=== PATIENT | female | born 1950 | race Caucasian/White ===

== ENCOUNTER → 2016-05-24 | Outpatient (CLI) | payer BC, MEDICARE ==
[~2016-05-24] MED LIST: AMLO5TAB2 PO; CLON0.1T14 PO
== END ==
LOC: CARD 11:17
PROVIDERS: ATTEND Internal Medicine Cardiovascular Disease
DX: E78.4 Other hyperlipidemia (principal); I10 Essential (primary) hypertension; R00.2 Palpitations; G47.30 Sleep apnea, unspecified
CPT/HCPCS: 93225; 93226

== ENCOUNTER → 2016-11-26 | Outpatient (CLI) | payer BC, MEDICARE | LOC: CARD 09:58 | DX: I10 Essential (primary) hypertension (principal); R53.83 Other fatigue; Z87.19 Personal history of other diseases of the digestive system | CPT/HCPCS: 93306 ==

== ENCOUNTER → 2017-02-23 | Outpatient (CLI) | payer BC, MEDICARE ==
--- NOTE | 2017-02-23 20:09 | Diagnostic Imaging Report ---
INDICATION: Fever and cough. PA and lateral chest obtained at 8:16 p.m. FINDINGS: Heart is normal in size. Mediastinal silhouette is unremarkable. Lungs are clear. There is no pneumothorax or pleural fluid. IMPRESSION: Negative chest. Dictated by: Dictated on workstation # [id number]
== END ==
LOC: RAD 19:43
PROVIDERS: ATTEND Nurse Practitioner Family
DX: R05 Cough (principal); R50.9 Fever, unspecified
CPT/HCPCS: 71046

== ENCOUNTER 2017-05-17 10:21 | Emergency (ER) | payer BC, MEDICARE ==
[~2017-05-17] VITALS: Ht 154.9 cm; Wt 56.7 kg
[~2017-05-17 10:21] MED LIST changes: -LEVO50TA PO; -VIT D PO
[2017-05-17] MEDS ORDERED: VIT D PO (10:47)
[2017-05-17] MEDS ORDERED: LEVO50TA PO (10:47)
[2017-05-17] MEDS ORDERED: NS IV 1000 ML 1,000 ML IV ONE (11:14)
[2017-05-17 11:30] LABS: BILIRUBIN,URINE NEGATIVE (NEGATIVE); CLARITY,URINE CLEAR; COLOR,URINE YELLOW; GLUCOSE, URINE (UA) NEGATIVE (NEGATIVE); KETONES,URINE NEGATIVE (NEGATIVE); LEUKOCYTE ESTERASE ,URINE NEGATIVE (NEGATIVE); NITRITE,URINE NEGATIVE (NEGATIVE); PH,URINE 6.5 (5-9); PROTEIN,URINE NEGATIVE (NEGATIVE); UROBILINOGEN,URINE NORMAL (NORMAL)
[2017-05-17 11:44] LABS: BACTERIA,URINE NEGATIVE /HPF; SQUAMOUS EPITHELIAL CELL,UR 0-2 /HPF; WBC,URINE RARE /HPF
[2017-05-17 11:47] LABS: BASOPHILS % (AUTO) 0 % (0-10); EOSINOPHILS % (AUTO) 0 % (0-10); HEMATOCRIT 37 % (35-52); HEMOGLOBIN 12.4 G/DL (11.5-16.0); LYMPHOCYTES # (AUTO) 2.4 X 10^3 (1.0-4.0); LYMPHOCYTES % (AUTO) 14 % (12-44); MEAN CORPUSCULAR HEMOGLOBIN 28 PG (25-34); MEAN CORPUSCULAR HGB CONC 34 G/DL (32-36); MEAN CORPUSCULAR VOLUME 82 FL (80-99); MONOCYTES # (AUTO) 0.8 X 10^3 (0.0-1.0); MONOCYTES % (AUTO) 5 % (0-12); NEUTROPHILS # (AUTO) 14.3 X 10^3 (1.8-7.8); NEUTROPHILS % (AUTO) 82 % (42-75); PLATELET COUNT 287 10^3/uL (130-400); RED CELL DISTRIBUTION WIDTH 13.2 % (10.0-14.5); WHITE BLOOD COUNT 17.6 10^3/uL (4.3-11.0)
[2017-05-17 12:16] LABS: BAND NEUTROPHILS 2 %; BASOPHILS % (MANUAL) 0 %; EOSINOPHILS % (MANUAL) 1 %; LYMPHOCYTES % (MANUAL) 14 %; MONOCYTES % (MANUAL) 5 %; NEUTROPHILS % (MANUAL) 78 %
[2017-05-17 12:28] LABS: ALANINE AMINOTRANSFERASE 26 U/L (0-55); ALBUMIN 4.5 GM/DL (3.2-4.5); ALKALINE PHOSPHATASE 81 U/L (40-136); BILIRUBIN,TOTAL 0.5 MG/DL (0.1-1.0); BUN/CREATININE RATIO 15; CALCIUM 10.6 MG/DL (8.5-10.1); CARBON DIOXIDE 29 MMOL/L (21-32); CHLORIDE 102 MMOL/L (98-107); CREATININE SERUM 0.65 MG/DL (0.60-1.30); GFR ESTIMATED > 60; GLUCOSE 122 MG/DL (70-105); POTASSIUM 3.6 MMOL/L (3.6-5.0); SODIUM 136 MMOL/L (135-145); TOTAL PROTEIN 8.3 GM/DL (6.4-8.2)
[2017-05-17 12:49] LABS: FREE T4 (FREE THYROXINE) 1.53 NG/DL (0.70-1.48)
--- NOTE | 2017-05-17 12:49 | ED General ---
General Chief Complaint: Fever-Adult/Adol Stated Complaint: BP ISSUES Nursing Triage Note: PT TO ROOM 7 PT CO OF FEVER AND ELEVATED B/P AT TIME OF FEVER. PT STATES SX STARTED LAST PM HAS TAKEN TYLENOL FOR FEVER THIS AM OF 101 Nursing Sepsis Screen: Possible Sepsis Risk Source of Information: Patient, Family Exam Limitations: No Limitations History of Present Illness Date Seen by Provider: May 17, 2017 Time Seen by Provider: 10:35 Initial Comments This 66-year-old woman presents to the emergency room with multiple complaints. She developed an episode of hypertension, tachycardia, and shivering with subjective fever last night around 01:30. Her reports vital signs at that time were temperature 96.8, blood pressure 220/109, heart rate 120. He also reports they placed a home rhythm monitor on her which stated "possible A. fib". Rhythm seemed irregular. She took an extra amlodipine 5 mg last night and vital signs gradually improved from there. She is feeling much better at this time. Last night she had back aching and leg aching. She could not sleep. She reports feeling fatigued for several months. She has also felt bloated and gaseous recently. Last night she reported increased urinary frequency which has since resolved. Her primary care provider is Dr. Mancera. Her rn traveling is . She has no history of cardiac arrhythmia. Patient took Tylenol this morning for a temperature of 101. Allergies and Home Medications Allergies Coded Allergies: Penicillins (Verified Allergy, Unknown, 06/11/12) cefuroxime axetil (Verified Allergy, Unknown, 06/11/12) Home Medications Amlodipine Besylate 5 Mg Tablet, 5 MG PO DAILY Prescribed by: CARLEY CORDERO on 06/11/122132 Levothyroxine Sodium 50 Mcg Tablet, 50 MCG PO DAILY, (Reported) Patient Home Medication List Home Medication List Reviewed: Yes Review of Systems Constitutional: see HPI EENTM: no symptoms reported Respiratory: no symptoms reported Cardiovascular: see HPI Gastrointestinal: see HPI Genitourinary: see HPI : No Musculoskeletal: muscle pain Skin: no symptoms reported Psychiatric/Neurological: No Symptoms Reported Hematologic/Lymphatic: No Symptoms Reported Immunological/Allergic: no symptoms reported Past Pnmtqsa-Dfpomp-Ufzejl Hx Patient Social History Alcohol Use: Denies Use Recreational Drug Use: No Smoking Status: Never a Smoker Recent Foreign Travel: No Contact w/Someone Who Travel: No Recent Infectious Disease Expo: No Recent Hopitalizations: No Physical Abuse: No Sexual Abuse: No Immunizations Up To Date Tetanus Booster (TDap): Less than 5yrs Seasonal Allergies Seasonal Allergies: No Past Medical History Surgeries: Yes (conization) Respiratory: No Cardiac: Yes Hypertension Neurological: No : No Reproductive Disorders: No Sexually Transmitted Disease: No HIV/AIDS: No Gastrointestinal: Yes Colitis Musculoskeletal: Yes Osteoporosis Endocrine: Yes Hypothyroidsim HEENT: No Cancer: No Psychosocial: No Nursing Suicide Risk Score: 0 Blood Disorders: No Adverse Reaction/Blood Tranf: No Family Medical History Cancer Physical Exam Vital Signs Vital Signs - First Documented 05/17/17 10:37 Temp 97.5 Pulse 98 Resp 18 B/P (MAP) 156/85 (108) Pulse Ox 98 Capillary Refill : Less Than 3 Seconds General Appearance: No Apparent Distress, WD/WN HEENT: PERRL/EOMI, TMs Normal, Normal ENT Inspection, Pharynx Normal Neck: Normal Inspection Respiratory: Lungs Clear, Normal Breath Sounds, No Accessory Muscle Use, No Respiratory Distress Cardiovascular: Regular Rate, Rhythm, No Edema, No Murmur Gastrointestinal: Normal Bowel Sounds, Non Tender, Soft Extremity: Normal Inspection, Non Tender, No Calf Tenderness, No Pedal Edema Neurologic/Psychiatric: Alert, Oriented x3, No Motor/Sensory Deficits, Normal Mood/Affect, data analysis intern II-XII Norm as Tested Skin: Normal Color, Warm/Dry Progress/Results/Core Measures Suspected Sepsis Recent Fever Within 48 Hours: Yes Infection Criteria Present: Suspected New Infection New/Unexplained Altered Menta: No Sepsis Screen: Possible Sepsis Risk Sepsis Diagnosis: SIRS Temperature:97.5 Pulse: 98 Respiratory Rate: 18 Laboratory Tests 05/17/17 11:29: White Blood Count 17.6H Blood Pressure 156 /85 Mean: 108 Laboratory Tests 05/17/17 11:29: Creatinine 0.65, Platelet Count 287, Total Bilirubin 0.5 Results/Orders Lab Results Laboratory Tests Test 05/17/17 11:23 05/17/17 11:29 Range/Units Urine Color YELLOW Urine Clarity CLEAR Urine pH 6.5 5-9 Urine Specific [place] 1.005 L 1.016-1.022 Urine Protein NEGATIVE NEGATIVE Urine Glucose (UA) NEGATIVE NEGATIVE Urine Ketones NEGATIVE NEGATIVE Urine Nitrite NEGATIVE NEGATIVE Urine Bilirubin NEGATIVE NEGATIVE Urine Urobilinogen NORMAL NORMAL MG/DL Urine Leukocyte Esterase NEGATIVE NEGATIVE Urine RBC (Auto) 1+ H NEGATIVE Urine RBC NONE /HPF Urine WBC RARE /HPF Urine Squamous Epithelial Cells 0-2 /HPF Urine Crystals NONE /LPF Urine Bacteria NEGATIVE /HPF Urine Casts NONE /LPF Urine Mucus NEGATIVE /LPF Urine Culture Indicated NO White Blood Count 17.6 H 4.3-11.0 10^3/uL Red Blood Count 4.50 4.35-5.85 10^6/uL Hemoglobin 12.4 11.5-16.0 G/DL Hematocrit 37 35-52 % Mean Corpuscular Volume 82 80-99 FL Mean Corpuscular Hemoglobin 28 25-34 PG Mean Corpuscular Hemoglobin Concent 34 32-36 G/DL Red Cell Distribution Width 13.2 10.0-14.5 % Platelet Count 287 130-400 10^3/uL Mean Platelet Volume 9.0 7.4-10.4 FL Neutrophils (%) (Auto) 82 H 42-75 % Lymphocytes (%) (Auto) 14 12-44 % Monocytes (%) (Auto) 5 0-12 % Eosinophils (%) (Auto) 0 0-10 % Basophils (%) (Auto) 0 0-10 % Neutrophils # (Auto) 14.3 H 1.8-7.8 X 10^3 Lymphocytes # (Auto) 2.4 1.0-4.0 X 10^3 Monocytes # (Auto) 0.8 0.0-1.0 X 10^3 Eosinophils # (Auto) 0.0 0.0-0.3 10^3/uL Basophils # (Auto) 0.0 0.0-0.1 10^3/uL Neutrophils % (Manual) 78 % Lymphocytes % (Manual) 14 % Monocytes % (Manual) 5 % Eosinophils % (Manual) 1 % Basophils % (Manual) 0 % Band Neutrophils 2 % Sodium Level 136 135-145 MMOL/L Potassium Level 3.6 3.6-5.0 MMOL/L Chloride Level 102 98-107 MMOL/L Carbon Dioxide Level 29 21-32 MMOL/L Anion Gap 5 5-14 MMOL/L Blood Urea Nitrogen 10 7-18 MG/DL Creatinine 0.65 0.60-1.30 MG/DL Estimat Glomerular Filtration Rate > 60 BUN/Creatinine Ratio 15 Glucose Level 122 H 70-105 MG/DL Calcium Level 10.6 H 8.5-10.1 MG/DL Magnesium Level 2.0 1.8-2.4 MG/DL Total Bilirubin 0.5 0.1-1.0 MG/DL Aspartate Amino Transf (AST/SGOT) 23 5-34 U/L Alanine Aminotransferase (ALT/SGPT) 26 0-55 U/L Alkaline Phosphatase 81 40-136 U/L Troponin I < 0.30 <0.30 NG/ML C-Reactive Protein High Sensitivity 2.57 H 0.00-0.50 MG/DL Total Protein 8.3 H 6.4-8.2 GM/DL Albumin 4.5 3.2-4.5 GM/DL Thyroid Stimulating Hormone (TSH) 0.96 0.35-4.94 UIU/ML Free Thyroxine 1.53 H 0.70-1.48 NG/DL Micro Results Microbiology 05/17/17 Influenza Types A,B Antigen (LUC) - Final, Complete My Orders Orders - CARLEY GUZMAN MD Influenza A And B Antigens (05/17/17 10:35) Cbc With Automated Diff (05/17/17 11:14) Comprehensive Metabolic Panel (05/17/17 11:14) Magnesium (05/17/17 11:14) Thyroid Stimulating Hormone (05/17/17 11:14) Troponin I (05/17/17 11:14) Ua Culture If Indicated (05/17/17 11:14) Saline Lock/Iv-Start (05/17/17 11:14) Ekg Tracing (05/17/17 11:14) Monitor-Rhythm Ecg Trace Only (05/17/17 11:14) Free T4 (Free Thyroxine) (05/17/17 11:14) Saline Lock/Iv-Start (05/17/17 11:14) Ns Iv 1000 Ml (Sodium Chloride 0.9%) (05/17/17 11:14) Manual Differential (05/17/17 11:29) Ecg Holter Recording 48 Hrs (05/17/17 11:51) Hs C Reactive Protein (05/17/17 12:15) Chest Pa/Lat (2 View) (05/17/17 12:15) Medications Given in ED Current Medications Medications Dose Ordered Sig/Chanda Route Start Time Stop Time Status Last Admin Dose Admin Sodium Chloride 1,000 ml @ 0 mls/hr Q0M ONCE IV 05/17/17 11:14 05/17/17 11:16 DC 05/17/17 11:20 1,000 MLS/HR Vital Signs/I&O 05/17/17 05/17/17 10:37 13:24 Temp 97.5 98.6 Pulse 98 84 Resp 18 18 B/P (MAP) 156/85 (108) 137/74 Pulse Ox 98 99 Capillary Refill : Less Than 3 Seconds Blood Pressure Mean: 108 Progress Note : Progress Note Workup was unremarkable except for leukocytosis of unexplained etiology. I suspect patient had a viral illness contributing to her symptoms and changes in vital signs. Patient was advised to return if symptoms worsen again. She received a liter of IV fluids and was feeling relatively well the time of dismissal. Case was reviewed with Dr. Nunez who recommended arrangements be made for a Holter monitor. Patient was sent to registration to obtain a Holter monitor after dismissal. No source of bacterial infection to account for the leukocytosis was identified. Antibiotics therefore were not administered. ECG Initial ECG Impression Date: May 17, 2017 Initial ECG Impression Time: 11:24 Initial ECG Rate: 92 Initial ECG Rhythm: Normal Sinus Initial ECG Intervals: Normal Comment Sinus rhythm with borderline tachycardia. Left axis deviation by automated read. No ST elevation or depression. No abnormal intervals. Diagnostic Imaging Diagonstic Imaging: Xray Plain Films/CT/US/NM/MRI: chest Comments Chest x-ray viewed by me and report reviewed. See report below: NAME: DAVID PADRON [facility] REC#: [id number] PT STATUS: REG ER : 1950 PHYSICIAN: CARLEY GUZMAN MD ADMIT DATE: 05/17/17/ER Draft Date of Exam:05/17/17 CHEST PA/LAT (2 VIEW) INDICATION: Hypertension. COMPARISON: 02/23/2017. FINDINGS: Two views of the chest are obtained. Heart size is normal. The pulmonary vessels appear unremarkable. There is no pneumothorax, mediastinal widening, or pleural fluid. The lungs are clear. Osseous structures appear unremarkable. IMPRESSION: No acute abnormality is demonstrated. Dictated on workstation # [id number] Dict: 05/17/17 1244 Trans: 05/17/17 1249 [id number] Interpreted by: TIFFANY HASKINS DO Departure Impression Primary Impression: Leukocytosis Qualified Codes: D72.829 - Elevated white blood cell count, unspecified Additional Impression: Hypertension Qualified Codes: I10 - Essential (primary) hypertension Disposition: 01 HOME, SELF-CARE Condition: Improved Departure-Patient Inst. Decision time for Depature: 13:06 Referrals: HILARIO MANCERA DO (PCP/Family) Primary Care Physician Patient Instructions: High Blood Pressure in Adults Add. Discharge Instructions: Follow-up with your primary care provider and your rn traveling as soon as possible, preferably this week. Call this afternoon to make an appointment. After discharge from the emergency room please present to registration to be fitted with a Holter monitor. Return to care if you have worsening symptoms. You may continue taking Tylenol (acetaminophen) up to 650 mg every 6 hours as needed for fever or shivering. All discharge instructions reviewed with patient and/or family. Voiced understanding. Copy Copies To 1: HILARIO MANCERA DO Copies To 2: DIANA NUNEZ MD FACP [facility] CARLEY GUZMAN MD May 17, 2017 12:48
[2017-05-17 13:24] VITALS: BP 137/74
== END 2017-05-17 13:24 | disposition home or self-care (01) ==
LOC: EDUNIT# 10:21 → ER 10:22
DX: D72.829 Elevated white blood cell count, unspecified (principal); I10 Essential (primary) hypertension; M81.0 Age-related osteoporosis without current pathological fracture; E03.9 Hypothyroidism, unspecified; Z87.19 Personal history of other diseases of the digestive system; Z88.0 Allergy status to penicillin; Z88.1 Allergy status to other antibiotic agents
CPT/HCPCS: 36415; 71046; 80053; 81000; 83735; 84439; 84443; 84484; 85007; 85027; 86141; 87804; 93041; 96360

== ENCOUNTER → 2017-05-17 | Outpatient (CLI) | payer BC, MEDICARE ==
[~2017-05-17] MED LIST changes: +LEVO50TA PO; +VIT D PO
== END ==
LOC: CARD 13:44
PROVIDERS: ATTEND Nurse Practitioner Family
DX: R00.2 Palpitations (principal)
CPT/HCPCS: 93225; 93226

== ENCOUNTER → 2018-08-03 | Outpatient (CLI) | payer BC, MEDICARE ==
[~2018-08-03] MED LIST changes: +LEVO50TA PO; +VIT D PO
--- NOTE | 2018-08-03 18:48 | Diagnostic Imaging Report ---
INDICATION: Low back pain. EXAMINATION: AP, oblique and lateral views of the lumbar spine were obtained. FINDINGS: There is mild right convexity curvature of the lumbar spine. No spondylolyses or spondylolisthesis is identified. Vertebral body heights are maintained. There is mild sclerosis about the L4-L5 and L5-S1 facet joints. IMPRESSION: Mild lower lumbar degenerative facet arthropathy with slight right convexity curvature of the lumbar spine. No definite acute abnormality is seen. Dictated by: Dictated on workstation # [id number]
--- NOTE | 2018-08-03 19:03 | Diagnostic Imaging Report ---
INDICATION: Back pain. FINDINGS: AP and lateral views of the thoracic spine are obtained. Thoracic spinal curvature and alignment are unremarkable. Vertebral body heights and disc spaces are maintained. There is no abnormal lytic or sclerotic focus. There is no evidence of paraspinous abnormality. IMPRESSION: There is slight left convexity curvature of the thoracic spine without other evidence of acute abnormality. Dictated by: Dictated on workstation # [id number]
== END ==
LOC: RAD 16:49
PROVIDERS: ATTEND Internal Medicine
DX: M46.86 Other specified inflammatory spondylopathies, lumbar region (principal); M54.6 Pain in thoracic spine
CPT/HCPCS: 72072; 72110